=== PATIENT | female | born 1940 | race Caucasian/White ===

== ENCOUNTER 2020-03-19 15:48 | Emergency (ER) | payer MEDICARE, BC, SELFPAY ==
[2020-03-19 15:49] VITALS: BP 158/90; PULSE 120; RESP 19; TEMP 36.4; O2SAT 98; BMI 19.5
--- NOTE | 2020-03-19 15:58 | EKG12_ITS ---
Test Reason : CP Blood Pressure : / mmHG Vent. Rate : 104 BPM Atrial Rate : 104 BPM P-R Int : 120 ms QRS Dur : 082 ms QT Int : 320 ms P-R-T Axes : 074 027 054 degrees QTc Int : 420 ms Sinus tachycardia Nonspecific ST abnormality Abnormal ECG Confirmed by IAM COHEN, MANINDER ([id number]), photographic editor BG MATA ([id number]) on 03/23/2020 1:35:24 PM Referred By: Confirmed By:MANINDER VITALE MD
--- NOTE | 2020-03-19 15:59 | ED.DCSUM_ITS ---
History of Present Illness Chief Complaint: Chest Pain Informant: Patient, Significant Other Onset: Weeks - Worst episode of chest discomfort was 2 weeks ago. Patient states she believes she was waking up when she had severe heavy tight sensation across her chest. She does not recall if she had any associated symptoms. Since that time she is had episodes of chest discomfort described as tightness. She believes it is due to stress. She does not admit to nausea, vomiting. She does have intermittent shortness of breath. Not necessarily with the chest discomfort. She denied diaphoresis with any episode. Context: Sudden Onset Timing: Intermittent Quality: The most significant discomfort 2 weeks ago tightness Location: Anterior chest bilateral Current Severity: Mild Maximum Severity: Severe Worsened by: Nothing Relieved by: Nothing Associated Symptoms: Slight dyspnea Narrative: Patient is an 79-year-old woman with a past medical history of osteoporosis. She denies history of smoking. She denies history of heart disease. She presents because of chest discomfort that has been intermittent over the past 2 weeks. The most difficult episode was 2 weeks ago when she awoke or awoke her from sleep described as a heavy sensation crossed her anterior chest. There is no radiation. She is had several episodes since. She had several episodes today. She believes it is due to stress. She denies fever, chills night sweats. She denies upper respiratory symptoms or symptoms to suggest COVID. She denies black or maroon stool. She denies abdominal pain or back pain. There is no history of VTE. Prior similar symptoms: No Recent Illness/Hospitalization: No - Past Medical History (1) History of osteoporosis Status: Acute Past Medical History - Allergies and Home Meds Allergies/Adverse Reactions: Allergies No Known Allergies Allergy (Verified 03/19/20 15:54) Primary Care Physician: Real Garcia MD [NON-STAFF] - Prior records reviewed: No - None available Surgical History: no surgical history Lives: Spouse/ Significant Other Smoking Status: Never smoker Alcohol: None Drugs: None Review of Systems General: Denies: Chills, Fever, Malaise, Sweats Eyes: Denies: Visual changes - bilaterally, Diplopia ENT: Denies: Rhinorrhea, Sore throat Cardiovascular: Reports: Chest pain. Denies: Palpitations, Heart racing, -, - Respiratory: Reports: Dyspnea. Denies: Cough, Sputum, Dyspnea on exertion, Orthopnea, Paroxysmal nocturnal dyspnea, -, - Genitourinary: Denies: Dysuria, Hematuria, Frequency Musculoskeletal: Denies: Myalgias, Arthralgias, Neck pain, Back pain, Swelling, Extremity Pain, -, - Skin: Denies: Rash, Wounds Neurological: Denies: Headache, Weakness, Numbness Psych: Reports: Anxiety. Denies: Depression Endocrine: Denies: Polyuria, Polydipsia Hematologic: Denies: Easy bruising, Easy bleeding Physical Exam Vital Signs/Narrative: Vital Signs Temp Pulse Resp BP Pulse Ox 03/19/20 15:49 97.6 F L 120 H 19 H 158/90 H 98 Inital Vital Signs reviewed: Yes General: Well nourished, Well developed, No Acute Distress Head: Normocephalic, Atraumatic Eyes: Perrl, EOMI. Negative for: Pale conjunctiva, Scleral icterus ENT: Moist mucous membranes, No rhinorrhea Neck: Supple, Nontender, No JVD Cardiovascular: Regular rhythm, No murmurs, Normal S1, Normal S2, Tachycardia Respiratory: No distress, CTA bilaterally, Chest nontender, Diminished Abdomen: Soft, Nontender, Nondistended, Normal bowel sounds, No masses. Negative for: Hepatomegaly, Splenomegaly, Mass, Pulsatile mass Rectal: Deferred Back: Nontender, Normal Inspection. Negative for: CVA tenderness Extremities: Nontender, No edema Skin: Normal color, No rash, No Trauma. Negative for: Cyanosis, Diaphoresis, Jaundice Neurological: Alert, Oriented x3, Cranial nerves II-XII grossly intact, Normal Strength, Normal Sensation Psychological: Normal affect, Normal Mood Diagnostic/Tx/Re-eval Chest X-Ray - ED: 1 View, Read by ED Physician, Normal, Heart, Mediastinum, Bony Structures, No Acute Disease Impressions Chest X-Ray 03/19/20 16:05 IMPRESSION: No acute cardiopulmonary findings. Negative for consolidation, atelectasis, cardiomegaly or pleural effusion. Demineralized osseous structures without acute thoracic fracture. Calcific deposit of the left rotator cuff tendon. Electronically Signed: Dorcas Lopez MD at 16:26 EDT , Service support , 03/19/20 16:05 Chest 1 View (Portable) [RAD] Stat Laboratory Results 03/19/20 03/19/20 03/19/20 16:00 16:00 19:15 WBC 6.9 RBC 4.57 Hgb 14.0 Hct 43.8 MCV 95.8 MCH 30.6 MCHC 32.0 RDW Std Deviation 50.9 H RDW Coeff of Collins 14.4 Plt Count 265 MPV 10.4 Immature Gran % (Auto) 0.600 Neut % (Auto) 70.7 H Lymph % (Auto) 22.2 [place] % (Auto) 5.7 Eos % (Auto) 0.1 Baso % (Auto) 0.7 Absolute Neuts (auto) 4.9 Absolute Lymphs (auto) 1.53 Nucleated RBC % 0 Sodium 142 Potassium 3.1 L Chloride 102 Carbon Dioxide 31.0 Anion Gap 9 BUN 17 Creatinine 1.35 H Estim Creat Clear Calc 21.46 Est GFR (MDRD) Af Amer 48 L Est GFR (MDRD) Non-Af 40 L BUN/Creatinine Ratio 12.6 Glucose 224 H Calcium 9.3 Troponin I < 0.015 < 0.015 First troponin and second troponin are normal. 3-hour delta is normal. Patient was informed that she has new onset diabetes since her blood sugars 224. She also has evidence of renal insufficiency. She was told she needs to follow-up with her primary care physician for further testing. Plan is to start patient on metformin 250 mg. - EKG Initial EKG Interpretation: Sinus Tachycardia - Sinus tachycardia with a ventricular rate of 104. MN interval 120 ms. QS duration 82 ms. QT duration 320 ms. [place] is normal. There are nonspecific ST-T wave changes noted - Medical Decision Making Differential diagnosis includes coronary disease, myocarditis, pulmonary embolus noncardiac etiology. EKG, appropriate blood work and chest x-ray were obtained. 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
[2020-03-19 16:00] VITALS: O2SAT 99
[2020-03-19] MEDS: Aspirin 81 MG TAB.CHEW 324 MG PO (16:05)
--- NOTE | 2020-03-19 16:05 | RAD_ITS ---
STUDY: X-RAY CHEST REASON FOR EXAM: Female, 79 years old. chest pain intermittent x several weeks TECHNIQUE: One view portable upright. COMPARISON: None. FINDINGS: The lungs are clear and expanded. There is no demonstrated pleural abnormality. Normal size heart. Normal mediastinum and emily. Normal visualized pulmonary arteries. Mild elongation of the thoracic aorta. There is demineralization of the osseous structures. Calcific deposit of the left rotator cuff tendon. There is no demonstrated abnormality of the visualized soft tissue structures of the upper abdomen. RAD/Chest 1 View (Portable) IMPRESSION: No acute cardiopulmonary findings. Negative for consolidation, atelectasis, cardiomegaly or pleural effusion. Demineralized osseous structures without acute thoracic fracture. Calcific deposit of the left rotator cuff tendon. Electronically Signed: Dorcas Lopez MD at 16:26 EDT , Service support ,
[2020-03-19 16:26] LABS: Absolute Lymphocyte Count 1.53 X10^3/uL (0.83-4.51); Absolute Neutrophil Count 4.9 X10^3/uL (2.0-7.7); Basophil# 0.05 X10^3/uL; Basophil% 0.7 % (0-1); Eosinophil# 0.01 X10^3/uL; Eosinophils% 0.1 % (0-5); Hematocrit 43.8 % (37-47); Lymphocyte # 1.53 X10^3/ul (4.0); Lymphocyte % 22.2 % (19-41); Mean Corpuscular Hgb 30.6 pg (27.0-32.0); Mean Corpuscular Volume 95.8 fL (81-99); Mean Platelet Vol. 10.4 fl (6.2-12.0); Monocyte# 0.39 X10^3/uL; Monocyte% 5.7 % (0-10); NRBC Flagged by Analyzer 0 % (0-5); Neutrophil # 4.86 X10^3/uL (2.7-7.7); Neutrophil % 70.7 % (47-70); Platelet Count 265 K/mm3 (150-450); RBC Distribution Width CV 14.4 % (11.6-14.6); RBC Distribution Width SD 50.9 fl (35.1-43.9); Red Blood Count 4.57 M/mm3 (4.2-5.4); White Blood Count 6.9 K/mm3 (4.4-11.0)
[2020-03-19 16:56] LABS: Anion Gap 9 (5-15); BUN 17 mg/dL (7-18); BUN/Creat Ratio 12.6 RATIO (10-20); Calcium,Total 9.3 mg/dL (8.5-10.1); Chloride 102 mmol/L (98-107); Creatinine, Serum 1.35 mg/dL (0.55-1.02); EST Glomerular Filtration Rate 40 mL/min (>60); Est Glom Filt Rate - Afr Amer 48 mL/min (>60); Estimated Creatinine Clearance 21.46 ml/min; Glucose 224 mg/dL (74-106); Potassium 3.1 mmol/L (3.5-5.1); Sodium Level 142 mmol/L (136-145)
[2020-03-19 17:57] VITALS: BP 130/93; PULSE 89; RESP 17; O2SAT 98
[2020-03-19 19:18] VITALS: BP 141/66; PULSE 74; RESP 14; O2SAT 99
== END 2020-03-19 19:59 | disposition home or self-care (01) ==
PROVIDERS: Emergency Provider Emergency Medicine; PCP Family Medicine
DX: R07.89 Other chest pain (principal); E11.8 Type 2 diabetes mellitus with unspecified complications; N28.9 Disorder of kidney and ureter, unspecified; M19.90 Unspecified osteoarthritis, unspecified site
CPT/HCPCS: 71045; 80048; 84484; 85025; 93005; 99285; A4216